=== PATIENT | female | born 1950 | race Caucasian/White ===

== ENCOUNTER 2019-02-04 08:07 | Inpatient (IN) | payer MEDICARE, BC ==
[2019-02-04] MEDS ORDERED: oxyCODONE 5 MG Tab ONE (12:02)
[2019-02-04] MEDS: oxyCODONE 5 MG Tab PO PRN ×2 (12:05→20:05)
[2019-02-04] MEDS ORDERED: Polyethylene Glycol 3350 Powder 17 GM Packet PO PRN (13:19)
[2019-02-04] MEDS ORDERED: Non-Formulary Medication 1 Each (Cholecalciferol (Vitamin D3) [Vitamin D3] 10,000 UNIT) PO SCH (13:30)
[2019-02-04] MEDS ORDERED: Tuberculin, PPD 5 Units/0.1 ML 1 ML MDV IDERM ONE (14:05)
--- NOTE | 2019-02-04 17:18 | PCM.HP ---
H&P History of Present Illness - General Date of Service: 02/04/19 Admit Problem/Dx: Admission Diagnosis/Problem Admission Diagnosis/Problem Postoperative care Source of Information: Patient History Limitations: Reports: No Limitations - History of Present Illness Initial Comments - Free Text/Narative: This is a 68yo F here for subacute rehabilitation post right hip arthroplasty. Patient still requires help for transfers and movement. Patient denies any current complications or concerns. Location: Reports: Pelvis Quality: Reports: Ache Severity: Moderate Improves with: Reports: None Worsens with: Reports: Movement Associated Symptoms: Reports: No Other Symptoms Right Hip Pain Score (Numeric/FACES): 5 - Related Data Allergies/Adverse Reactions: Allergies Allergy/AdvReac Type Severity Reaction Status Date / Time hydrochlorothiazide Allergy Unknown Rash Verified 02/04/19 11:51 Iodinated Contrast- Oral and Allergy Unknown Rash Verified 02/04/19 11:51 IV Dye Sulfa (Sulfonamide Allergy Unknown Rash Verified 02/04/19 11:51 Antibiotics) Home Medications: Home Meds Acetaminophen [Tylenol Arthritis] 650 mg PO Q6HR PRN 02/04/19 [History] Ascorbic Acid [Vitamin C] 1,000 mg PO DAILY 02/04/19 [History] Aspirin [Aspirin EC] 325 mg PO DAILY 02/04/19 [History] Calcium Carbonate [Calcium] 500 mg PO DAILY 02/04/19 [History] Cholecalciferol (Vitamin D3) [Vitamin D3] 10,000 unit PO WEEKLY 02/04/19 [ History] Furosemide 20 mg PO DAILY 02/04/19 [History] Glucosamine Sulfate 2KCl [Glucosamine] 1,000 mg PO DAILY 02/04/19 [History] Losartan [Cozaar] 50 mg PO DAILY 02/04/19 [History] Multivitamin [Multiple Vitamins] 1 each PO DAILY 02/04/19 [History] Naproxen 250 mg PO BID 02/04/19 [History] Pantoprazole Sodium [Protonix] 40 mg PO ACBREAKFAST 02/04/19 [History] Polyethylene Glycol 3350 [MiraLAX] 17 gm PO DAILY PRN 02/04/19 [History] Red Yeast Rice 600 mg PO DAILY 02/04/19 [History] Sennosides/Docusate Sodium [Senna-Docusate Sodium Tablet] 1 - 2 tab PO BID PRN 02/04/19 [History] oxyCODONE 5 - 10 mg PO Q4HR PRN 02/04/19 [History] Past Medical History HEENT History: Reports: None Other HEENT History: readers Cardiovascular History: Reports: Heart Failure Other Cardiovascular History: Pt has had radiation from breast cancer and EF is only 30 Respiratory History: Reports: SOB Other Respiratory History: cough, shortness of breath Gastrointestinal History: Reports: Other (See Below) Other Gastrointestinal History: hiccups Other Genitourinary History: Pt had ureter nicked during surgery and was taken to the of for repair. [employer] History: Reports: Dysfunctional Uterine Bleeding, Musculoskeletal History: Reports: Arthritis, Back Pain, Chronic, Osteoarthritis Other Musculoskeletal History: knee and hip pain, muscles weaker Neurological History: Reports: Other (See Below) Other Neuro History: MIXON from steroid injections Other Psychiatric History: claustraphobic Oncologic (Cancer) History: Reports: Breast Other Dermatologic History: bumps on skin - Past Surgical History Cardiovascular Surgical History: Reports: Other (See Below) Other Cardiovascular Surgeries/Procedures: bradycardia CHF GI Surgical History: Reports: Colonoscopy Female Surgical History: Reports: Hysterectomy Other Female Surgeries/Procedures: urethreal implant Musculoskeletal Surgical History: Reports: Hip Replacement Oncologic Surgical History: Reports: Lumpectomy Social & Family History - Family History Family Medical History: Noncontributory H&P Review of Systems - Review of Systems: Review Of Systems: ROS reveals no pertinent complaints other than HPI. Exam - Exam Exam: See Below - Vital Signs Vital Signs: Last Vital Signs Temp 36.8 C 02/04/19 13:16 Pulse 44 L 02/04/19 13:16 Resp 18 02/04/19 13:16 BP 126/51 L 02/04/19 13:16 Pulse Ox 97 02/04/19 13:16 Weight: 107.864 kg - Exam General: Alert, Oriented HEENT: PERRLA, Conjunctiva Clear, EACs Clear Neck: Supple, Trachea Midline Lungs: Clear to Auscultation, Normal Respiratory Effort Cardiovascular: Regular Rate, Regular Rhythm GI/Abdominal Exam: Normal Bowel Sounds, Soft, Non-Tender Back Exam: Normal Inspection Extremities: Normal Inspection Skin: Warm, Dry, Intact - Problem List (1) Post-operative state SNOMED Code(s): 80177694 ICD Code: Z98.890 - OTHER SPECIFIED POSTPROCEDURAL STATES Status: Acute Current Visit: Yes Problem List Initiated/Reviewed/Updated: Yes Orders Last 24hrs: Active Orders 24 hr Category Date Time Status Patient Status [ADT] Routine ADT 02/04/19 13:17 Active VTE/DVT Education [RC] DAILY Care 02/04/19 13:17 Active Vital Signs [RC] 08,20 Care 02/04/19 13:17 Active Hip Min 2V or 3V w Pelvis Rt [CR] Routine Exams 02/09/19 Ordered CULTURE MRSA SURVEY [RM] Routine Lab 02/04/19 14:08 Received Acetaminophen [Tylenol Arthritis Pain] Med 02/04/19 13:19 Active 650 mg PO Q6HR PRN Ascorbic Acid [Vitamin C] Med 02/05/19 20:00 Active 1,000 mg PO 2000 Aspirin [Ecotrin] Med 02/05/19 08:00 Active 325 mg PO DAILY Calcium Carbonate Med 02/05/19 20:00 Active 600 mg PO QPM Cholecalciferol (Vitamin D3) [Vitamin D3] Med 02/10/19 20:00 Active 10,000 unit PO TU@1999 Docusate Sodium/Sennosides [Senna Plus] Med 02/04/19 13:19 Active 1 - 2 tab PO BID PRN Furosemide [Lasix] Med 02/05/19 08:00 Active 20 mg PO DAILY Glucosamine Sulfate 2KCl [Glucosamine] Med 02/05/19 20:00 Active 1,000 mg PO BEDTIME Losartan [Cozaar] Med 02/05/19 08:00 Active 50 mg PO DAILY Multivitamins w-Iron/Ca/FA/Min [Thera M Plus] Med 02/05/19 20:00 Active 1 tab PO BEDTIME Naproxen [Naprosyn] Med 02/04/19 20:00 Active 250 mg PO BID Pantoprazole [ProTONIX] Med 02/05/19 07:00 Active 40 mg PO ACBREAKFAST Polyethylene Glycol 3350 [MiraLAX] Med 02/04/19 13:19 Active 17 gm PO DAILY PRN Red Yeast Rice [Red Yeast Rice] Med 02/05/19 20:00 Active 600 mg PO BEDTIME oxyCODONE Med 02/04/19 13:19 Active 5 - 10 mg PO Q4HR PRN Resuscitation Status Routine Resus Stat 02/04/19 13:17 Ordered Medication Orders Acetaminophen (Tylenol Arthritis Pain) 650 mg PO Q6HR PRN PRN Reason: Pain Ascorbic Acid (Vitamin C) 1,000 mg PO 1999 [facility] Stop: 02/16/19 23:59 Aspirin (Ecotrin) 325 mg PO DAILY EDMUNDO Calcium Carbonate/Glycine (Calcium Carbonate) 600 mg PO QPM EDMUNDO Cholecalciferol (Vitamin D3) 10,000 unit PO @1999 [facility] Furosemide (Lasix) 20 mg PO DAILY ED[facility] Losartan Potassium (Cozaar) 50 mg PO DAILY [facility] Multivitamins/Minerals (Thera M Plus) 1 tab PO BEDTIME [facility] Naproxen (Naprosyn) 250 mg PO BID [facility] Non-Formulary Medication 1 Each ( Glucosamine Sulfate 2kcl [Glucosamine] 500 Mg ) 1,000 mg PO BEDTIME EDMUNDO Non-Formulary Medication (Red Yeast Rice [Red Yeast Rice]) 600 mg PO BEDTIME EDMUN[facility] Oxycodone HCl (Oxycodone) 5 - 10 mg PO Q4HR PRN PRN Reason: Pain Last Admin: 02/04/19 12:05 Dose: 10 mg Pantoprazole Sodium (Protonix) 40 mg PO ACBREAKFAST [facility] Stop: 02/18/19 23:59 Polyethylene Glycol (Miralax) 17 gm PO DAILY PRN PRN Reason: Constipation Senna/Docusate Sodium (Senna Plus) 1 - 2 tab PO BID PRN PRN Reason: Constipation Assessment/Plan Comment:: Patient will continue with PT/OT and wound care. Continue discharge instructions from [place] and continue management. Meds reconciled.
[2019-02-04] MEDS: Acetaminophen 650 MG Tab.ER PO PRN (18:36)
[2019-02-04] MEDS ORDERED: Calcium Carbonate 600 MG Tab PO SCH (20:00)
[2019-02-04] MEDS: Naproxen 250 MG Tab PO SCH (20:05)
[2019-02-05] MEDS: Acetaminophen 650 MG Tab.ER PO PRN ×2 (01:55→17:37)
[2019-02-05] MEDS: Pantoprazole 40 MG Tab.CR PO SCH (06:23)
[2019-02-05] MEDS: Losartan 50 MG Tab PO SCH (07:57)
[2019-02-05] MEDS: Furosemide 20 MG Tab PO SCH (07:58)
[2019-02-05] MEDS: Naproxen 250 MG Tab PO SCH ×2 (07:58→20:51)
[2019-02-05] MEDS: Aspirin 325 MG Tab.EC PO SCH (07:58)
[2019-02-05] MEDS: oxyCODONE 5 MG Tab PO PRN ×2 (07:59→12:28)
[2019-02-05] MEDS ORDERED: Non-Formulary Medication 1 Each (Calcium Carbonate [Calcium] 500 MG) PO SCH (08:00)
[2019-02-05] MEDS ORDERED: Non-Formulary Medication 1 Each (Ascorbic Acid [Vitamin C] 1,000 MG) PO SCH (08:00)
[2019-02-05] MEDS ORDERED: MULTIVITAMIN PO SCH (08:00)
[2019-02-05] MEDS ORDERED: Calcium Carbonate 500 MG Tab.Chew PO SCH (20:00)
[2019-02-05] MEDS: Calcium Carbonate 600 MG Tab PO SCH (20:43)
[2019-02-05] MEDS: Ascorbic Acid 500 MG Tab PO SCH (20:43)
[2019-02-05] MEDS: GLUCOSAMINE SULFATE 500 MG PO SCH (20:44)
[2019-02-05] MEDS: Multivitamins with Iron/Calcium/Folic Acid/Minerals Tab PO SCH (20:45)
[2019-02-05] MEDS: RED YEAST RICE 600 MG PO SCH (20:52)
[2019-02-06] MEDS: Pantoprazole 40 MG Tab.CR PO SCH (06:50)
[2019-02-06] MEDS: Furosemide 20 MG Tab PO SCH (07:23)
[2019-02-06] MEDS: Naproxen 250 MG Tab PO SCH ×2 (07:23→19:33)
[2019-02-06] MEDS: Losartan 50 MG Tab PO SCH (07:23)
[2019-02-06] MEDS: Aspirin 325 MG Tab.EC PO SCH (07:23)
[2019-02-06] MEDS: oxyCODONE 5 MG Tab PO PRN (07:31)
[2019-02-06] MEDS: Acetaminophen 650 MG Tab.ER PO PRN (13:49)
[2019-02-06] MEDS: Calcium Carbonate 600 MG Tab PO SCH (19:33)
[2019-02-06] MEDS: Ascorbic Acid 500 MG Tab PO SCH (19:33)
[2019-02-06] MEDS: Multivitamins with Iron/Calcium/Folic Acid/Minerals Tab PO SCH (19:33)
[2019-02-06] MEDS: RED YEAST RICE 600 MG PO SCH (19:34)
[2019-02-06] MEDS: GLUCOSAMINE SULFATE 500 MG PO SCH (19:34)
[2019-02-07] MEDS: oxyCODONE 5 MG Tab PO PRN (02:39)
[2019-02-07] MEDS: Acetaminophen 650 MG Tab.ER PO PRN ×2 (02:41→19:38)
[2019-02-07] MEDS: Pantoprazole 40 MG Tab.CR PO SCH (06:13)
[2019-02-07] MEDS: Losartan 50 MG Tab PO SCH (07:24)
[2019-02-07] MEDS: Aspirin 325 MG Tab.EC PO SCH (07:24)
[2019-02-07] MEDS: Furosemide 20 MG Tab PO SCH (07:24)
[2019-02-07] MEDS: Naproxen 250 MG Tab PO SCH ×2 (07:24→19:37)
[2019-02-07] MEDS: Calcium Carbonate 600 MG Tab PO SCH (19:38)
[2019-02-07] MEDS: Ascorbic Acid 500 MG Tab PO SCH (19:38)
[2019-02-07] MEDS: Multivitamins with Iron/Calcium/Folic Acid/Minerals Tab PO SCH (19:38)
[2019-02-07] MEDS: GLUCOSAMINE SULFATE 500 MG PO SCH (19:39)
[2019-02-07] MEDS: RED YEAST RICE 600 MG PO SCH (19:40)
[2019-02-08] MEDS: Acetaminophen 650 MG Tab.ER PO PRN ×3 (06:10→22:12)
[2019-02-08] MEDS: Pantoprazole 40 MG Tab.CR PO SCH (06:10)
[2019-02-08] MEDS: Losartan 50 MG Tab PO SCH (08:11)
[2019-02-08] MEDS: Naproxen 250 MG Tab PO SCH ×2 (08:13→19:58)
[2019-02-08] MEDS: Furosemide 20 MG Tab PO SCH (08:13)
[2019-02-08] MEDS: Aspirin 325 MG Tab.EC PO SCH (08:13)
[2019-02-08] MEDS: GLUCOSAMINE SULFATE 500 MG PO SCH (19:57)
[2019-02-08] MEDS: Ascorbic Acid 500 MG Tab PO SCH (19:58)
[2019-02-08] MEDS: RED YEAST RICE 600 MG PO SCH (19:58)
[2019-02-08] MEDS: Calcium Carbonate 600 MG Tab PO SCH (19:58)
[2019-02-08] MEDS: Multivitamins with Iron/Calcium/Folic Acid/Minerals Tab PO SCH (19:58)
[2019-02-09] MEDS: Acetaminophen 650 MG Tab.ER PO PRN (03:05)
[2019-02-09] MEDS: Pantoprazole 40 MG Tab.CR PO SCH (06:32)
[2019-02-09] MEDS: Losartan 50 MG Tab PO SCH (08:07)
[2019-02-09] MEDS: oxyCODONE 5 MG Tab PO PRN (08:07)
[2019-02-09] MEDS: Furosemide 20 MG Tab PO SCH (08:07)
[2019-02-09] MEDS: Aspirin 325 MG Tab.EC PO SCH (08:07)
[2019-02-09] MEDS: Naproxen 250 MG Tab PO SCH ×2 (08:08→20:16)
--- NOTE | 2019-02-09 10:35 | PCM.PN ---
- General Info Date of Service: 02/09/19 Functional Status: Reports: Pain Controlled, Tolerating Diet, Ambulating, Urinating - Review of Systems General: Reports: No Symptoms HEENT: Reports: No Symptoms Pulmonary: Reports: No Symptoms Cardiovascular: Reports: No Symptoms Gastrointestinal: Reports: No Symptoms Genitourinary: Reports: No Symptoms Musculoskeletal: Reports: Joint Swelling, Other (difficulty with walking) Skin: Reports: No Symptoms Neurological: Reports: No Symptoms Psychiatric: Reports: No Symptoms - Patient Data Vitals - Most Recent: Last Vital Signs Temp 36.8 C 02/09/19 10:00 Pulse 48 L 02/09/19 10:00 Resp 16 02/09/19 10:00 BP 147/52 H 02/09/19 10:00 Pulse Ox 98 02/09/19 10:00 Weight - Most Recent: 104.871 kg Med Orders - Current: Current Medications Acetaminophen (Tylenol Arthritis Pain) 650 mg PO Q6HR PRN PRN Reason: Pain Last Admin: 02/09/19 03:05 Dose: 650 mg Ascorbic Acid (Vitamin C) 1,000 mg PO 1999 [facility] Stop: 02/16/19 23:59 Last Admin: 02/08/19 19:58 Dose: 1,000 mg Aspirin (Ecotrin) 325 mg PO DAILY [facility] Last Admin: 02/09/19 08:07 Dose: 325 mg Calcium Carbonate/Glycine (Calcium Carbonate) 600 mg PO QPM [facility] Last Admin: 02/08/19 19:58 Dose: 600 mg Cholecalciferol (Vitamin D3) 10,000 unit PO @1999 [facility] Furosemide (Lasix) 20 mg PO DAILY [facility] Last Admin: 02/09/19 08:07 Dose: 20 mg Losartan Potassium (Cozaar) 50 mg PO DAILY [facility] Last Admin: 02/09/19 08:07 Dose: 50 mg Multivitamins/Minerals (Thera M Plus) 1 tab PO BEDTIME [facility] Last Admin: 02/08/19 19:58 Dose: 1 tab Naproxen (Naprosyn) 250 mg PO BID [facility] Last Admin: 02/09/19 08:08 Dose: 250 mg Non-Formulary Medication 1 Each ( Glucosamine Sulfate 2kcl [Glucosamine] 500 Mg ) 1,000 mg PO BEDTIME [facility] Last Admin: 02/08/19 19:57 Dose: 1,000 mg Non-Formulary Medication (Red Yeast Rice [Red Yeast Rice]) 600 mg PO BEDTIME EDMUNDO Last Admin: 02/08/19 19:58 Dose: 600 mg Oxycodone HCl (Oxycodone) 5 - 10 mg PO Q4HR PRN PRN Reason: Pain Last Admin: 02/09/19 08:07 Dose: 5 mg Pantoprazole Sodium (Protonix) 40 mg PO ACBREAKFAST [facility] Stop: 02/18/19 23:59 Last Admin: 02/09/19 06:32 Dose: 40 mg Polyethylene Glycol (Miralax) 17 gm PO DAILY PRN PRN Reason: Constipation Senna/Docusate Sodium (Senna Plus) 1 - 2 tab PO BID PRN PRN Reason: Constipation Discontinued Medications Calcium Carbonate/Glycine (Tums) 200 mg PO BEDTIME EDMUNDO Calcium Carbonate/Glycine (Calcium Carbonate) 600 mg PO QPM EDM[facility] Cholecalciferol (Vitamin D3) 10,000 unit PO Tu [facility] Oxycodone HCl (Oxycodone) Confirm Administered Dose 10 mg .ROUTE .STK-MED ONE Stop: 02/04/19 12:03 Last Admin: 02/04/19 14:29 Dose: Not Given Tuberculin PPD (Aplisol) 5 unit IDERM ONETIME ONE Stop: 02/04/19 14:06 Last Admin: 02/04/19 15:09 Dose: 5 unit - Exam General: Alert, Oriented, Cooperative HEENT: Pupils Equal, Pupils Reactive, EOMI Neck: Supple Lungs: Clear to Auscultation, Normal Respiratory Effort Cardiovascular: Regular Rate, Regular Rhythm GI/Abdominal Exam: Normal Bowel Sounds Back Exam: Normal Inspection Extremities: Limited Range of Motion - Problem List & Annotations (1) Post-operative state SNOMED Code(s): 29769266 Code(s): Z98.890 - OTHER SPECIFIED POSTPROCEDURAL STATES Status: Acute Current Visit: Yes - Problem List Review Problem List Initiated/Reviewed/Updated: Yes - My Orders Last 24 Hours: My Active Orders 02/09/19 Hip Min 2V or 3V w Pelvis Rt [CR] Routine 02/10/19 20:00 Cholecalciferol (Vitamin D3) [Vitamin D3] 10,000 unit PO TU@1999 - Plan Plan:: Patient will continue with PT/OT and wound care. Continue discharge instructions from [place] and continue management. Meds reconciled. 02/09/19 Patient will continue with current PT/OT and f/u with Dr. Nelson today for further planning and management.
--- NOTE | 2019-02-09 12:50 | CR ---
DATE OF SERVICE: 02/09/19 CLINICAL DATA: S/P R) AGUSTIN PELVIS AND RIGHT HIP: No priors. The patient is status post right total hip arthroplasty. The prosthesis appears intact. There are moderately severe osteoarthritic changes of the left hip joint. No acute abnormalities. [id number] [facility]
[2019-02-09] MEDS: RED YEAST RICE 600 MG PO SCH (20:15)
[2019-02-09] MEDS: Ascorbic Acid 500 MG Tab PO SCH (20:15)
[2019-02-09] MEDS: Calcium Carbonate 600 MG Tab PO SCH (20:16)
[2019-02-09] MEDS: Multivitamins with Iron/Calcium/Folic Acid/Minerals Tab PO SCH (20:21)
[2019-02-09] MEDS: GLUCOSAMINE SULFATE 500 MG PO SCH (20:23)
[2019-02-10] MEDS: Pantoprazole 40 MG Tab.CR PO SCH (06:17)
[2019-02-10] MEDS: Losartan 50 MG Tab PO SCH (07:43)
[2019-02-10] MEDS: Naproxen 250 MG Tab PO SCH ×2 (07:43→20:42)
[2019-02-10] MEDS: Aspirin 325 MG Tab.EC PO SCH (07:43)
[2019-02-10] MEDS: Furosemide 20 MG Tab PO SCH (07:43)
[2019-02-10] MEDS ORDERED: Cholecalciferol (Vitamin D3) 2,000 Unit Cap PO SCH ×2 (08:00→20:00)
[2019-02-10] MEDS: Multivitamins with Iron/Calcium/Folic Acid/Minerals Tab PO SCH (20:30)
[2019-02-10] MEDS: GLUCOSAMINE SULFATE 500 MG PO SCH (20:42)
[2019-02-10] MEDS: RED YEAST RICE 600 MG PO SCH (20:42)
[2019-02-10] MEDS: Calcium Carbonate 600 MG Tab PO SCH (20:42)
[2019-02-10] MEDS: Ascorbic Acid 500 MG Tab PO SCH (20:43)
[2019-02-11] MEDS: Pantoprazole 40 MG Tab.CR PO SCH (06:07)
[2019-02-11] MEDS: Naproxen 250 MG Tab PO SCH ×2 (07:31→19:58)
[2019-02-11] MEDS: Furosemide 20 MG Tab PO SCH (07:31)
[2019-02-11] MEDS: Losartan 50 MG Tab PO SCH (07:31)
[2019-02-11] MEDS: Aspirin 325 MG Tab.EC PO SCH (07:31)
[2019-02-11] MEDS: RED YEAST RICE 600 MG PO SCH (19:57)
[2019-02-11] MEDS: Multivitamins with Iron/Calcium/Folic Acid/Minerals Tab PO SCH (19:58)
[2019-02-11] MEDS: Ascorbic Acid 500 MG Tab PO SCH (19:58)
[2019-02-11] MEDS: Calcium Carbonate 600 MG Tab PO SCH (19:58)
[2019-02-11] MEDS: GLUCOSAMINE SULFATE 500 MG PO SCH (19:58)
[2019-02-12] MEDS: Pantoprazole 40 MG Tab.CR PO SCH (06:13)
[2019-02-12 08:09] VITALS: BP 143/81; PULSE 37
[2019-02-12] MEDS: Losartan 50 MG Tab PO SCH (08:10)
[2019-02-12] MEDS: Aspirin 325 MG Tab.EC PO SCH (08:10)
[2019-02-12] MEDS: Furosemide 20 MG Tab PO SCH (08:11)
[2019-02-12] MEDS: Naproxen 250 MG Tab PO SCH (08:12)
--- NOTE | 2019-03-10 13:17 | PCM.DCSUM1 ---
Discharge Summary - Hospital Course Diagnosis: Stroke: No - Discharge Data Discharge Date: 02/12/19 Discharge Disposition: Home, Self-Care 01 Condition: Good - Discharge Diagnosis/Problem(s) (1) Post-operative state SNOMED Code(s): 86502830 ICD Code: Z98.890 - OTHER SPECIFIED POSTPROCEDURAL STATES Status: Acute - Patient Summary/Data Consults: Consultations 02/04/19 17:55 OT Evaluation and Treatment [CONS] Routine Please Evaluate and Treat. OT Reason for Consult: Strengthening This query below is only for informational purposes and is not editable. Admission Diagnosis/Problem: Postoperative care PT Evaluation and Treatment [CONS] Routine Please Evaluate and Treat. PT Reason for Consult: Strengthening This query below is only for informational purposes and is not editable. Admission Diagnosis/Problem: Postoperative care - Patient Instructions Diet: Heart Healthy Diet Activity: As Tolerated Showering/Bathing: May Shower Wound/Incision Care: Keep Operative Site/Wound Site Clean and Dry Notify Provider of: Swelling and Redness - Discharge Plan Home Medications: Home Meds Acetaminophen [Tylenol Arthritis] 650 mg PO Q6HR PRN 02/04/19 [History] Ascorbic Acid [Vitamin C] 1,000 mg PO DAILY 02/04/19 [History] Aspirin [Aspirin EC] 325 mg PO DAILY 02/04/19 [History] Calcium Carbonate [Calcium] 500 mg PO DAILY 02/04/19 [History] Cholecalciferol (Vitamin D3) [Vitamin D3] 10,000 unit PO WEEKLY 02/04/19 [ History] Furosemide 20 mg PO DAILY 02/04/19 [History] Glucosamine Sulfate 2KCl [Glucosamine] 1,000 mg PO DAILY 02/04/19 [History] Losartan [Cozaar] 50 mg PO DAILY 02/04/19 [History] Multivitamin [Multiple Vitamins] 1 each PO DAILY 02/04/19 [History] Naproxen 250 mg PO BID 02/04/19 [History] Pantoprazole Sodium [Protonix] 40 mg PO ACBREAKFAST 02/04/19 [History] Polyethylene Glycol 3350 [MiraLAX] 17 gm PO DAILY PRN 02/04/19 [History] Red Yeast Rice 600 mg PO DAILY 02/04/19 [History] Sennosides/Docusate Sodium [Senna-Docusate Sodium Tablet] 1 - 2 tab PO BID PRN 02/04/19 [History] oxyCODONE 5 - 10 mg PO Q4HR PRN 02/04/19 [History] Patient Handouts: Fall Prevention in the Home, Adult, [id number], Total Hip Replacement, Total Hip Replacement, Care After, [id number] - Discharge Summary/Plan Comment DC Time >30 min.: No Discharge Summary/Plan Comment: Patient to continued PT/OT and f/u with Orthopedics as scheduled. Routine f/u as needed. - General Info Date of Service: 02/12/19 Functional Status: Reports: Pain Controlled, Ambulating - Review of Systems General: Reports: Weakness HEENT: Reports: No Symptoms Pulmonary: Reports: No Symptoms Cardiovascular: Reports: No Symptoms Gastrointestinal: Reports: No Symptoms Genitourinary: Reports: No Symptoms Musculoskeletal: Reports: Leg Pain Skin: Reports: No Symptoms Neurological: Reports: No Symptoms Psychiatric: Reports: No Symptoms - Patient Data Vitals - Most Recent: Last Vital Signs Temp 36.6 C 02/12/19 08:00 Pulse 37 L 02/12/19 08:00 Resp 16 02/12/19 08:00 BP 143/81 H 02/12/19 08:10 Pulse Ox 100 02/12/19 08:00 Weight - Most Recent: 104.383 kg Med Orders - Current: Current Medications Discontinued Medications Acetaminophen (Tylenol Arthritis Pain) 650 mg PO Q6HR PRN PRN Reason: Pain Last Admin: 02/09/19 03:05 Dose: 650 mg Ascorbic Acid (Vitamin C) 1,000 mg PO 1999 [facility] Stop: 02/16/19 23:59 Last Admin: 02/11/19 19:58 Dose: 1,000 mg Aspirin (Ecotrin) 325 mg PO DAILY [facility] Last Admin: 02/12/19 08:10 Dose: 325 mg Calcium Carbonate/Glycine (Tums) 200 mg PO BEDTIME [facility] Calcium Carbonate/Glycine (Calcium Carbonate) 600 mg PO QPM [facility] Calcium Carbonate/Glycine (Calcium Carbonate) 600 mg PO QPM [facility] Last Admin: 02/11/19 19:58 Dose: 600 mg Cholecalciferol (Vitamin D3) 10,000 unit PO Tu EDMUNDO Cholecalciferol (Vitamin D3) 10,000 unit PO TU@1999 [facility] Last Admin: 02/10/19 20:43 Dose: 10,000 unit Furosemide (Lasix) 20 mg PO DAILY [facility] Last Admin: 02/12/19 08:11 Dose: 20 mg Losartan Potassium (Cozaar) 50 mg PO DAILY [facility] Last Admin: 02/12/19 08:10 Dose: 50 mg Multivitamins/Minerals (Thera M Plus) 1 tab PO BEDTIME [facility] Last Admin: 02/11/19 19:58 Dose: 1 tab Naproxen (Naprosyn) 250 mg PO BID [facility] Last Admin: 02/12/19 08:12 Dose: Not Given Non-Formulary Medication 1 Each ( Glucosamine Sulfate 2kcl [Glucosamine] 500 Mg ) 1,000 mg PO BEDTIME [facility] Last Admin: 02/11/19 19:58 Dose: 1,000 mg Non-Formulary Medication (Red Yeast Rice [Red Yeast Rice]) 600 mg PO BEDTIME [facility] Last Admin: 02/11/19 19:57 Dose: 600 mg Oxycodone HCl (Oxycodone) Confirm Administered Dose 10 mg .ROUTE .STK-MED ONE Stop: 02/04/19 12:03 Last Admin: 02/04/19 14:29 Dose: Not Given Oxycodone HCl (Oxycodone) 5 - 10 mg PO Q4HR PRN PRN Reason: Pain Last Admin: 02/09/19 08:07 Dose: 5 mg Pantoprazole Sodium (Protonix) 40 mg PO ACBREAKFAST [facility] Stop: 02/18/19 23:59 Last Admin: 02/12/19 06:13 Dose: 40 mg Polyethylene Glycol (Miralax) 17 gm PO DAILY PRN PRN Reason: Constipation Senna/Docusate Sodium (Senna Plus) 1 - 2 tab PO BID PRN PRN Reason: Constipation Tuberculin PPD (Aplisol) 5 unit IDERM ONETIME ONE Stop: 02/04/19 14:06 Last Admin: 02/04/19 15:09 Dose: 5 unit - Exam General: Reports: Alert, Oriented, Cooperative HEENT: Reports: Pupils Equal, Pupils Reactive Neck: Reports: Supple Lungs: Reports: Clear to Auscultation, Normal Respiratory Effort Cardiovascular: Reports: Regular Rate, Regular Rhythm GI/Abdominal Exam: Normal Bowel Sounds Back Exam: Reports: Normal Inspection Extremities: Normal Inspection
== END 2019-02-12 09:30 | disposition home or self-care (01) | DRG 561 ==
LOC: UNDOADMIN 11:45 → LB.MS 11:45
PROVIDERS: ADMIT Family Medicine; ATTEND Family Medicine
DX: Z47.1 Aftercare following joint replacement surgery (principal); Z96.641 Presence of right artificial hip joint; I50.9 Heart failure, unspecified; M19.90 Unspecified osteoarthritis, unspecified site; G89.29 Other chronic pain; M54.9 Dorsalgia, unspecified; Z92.3 Personal history of irradiation; Z88.2 Allergy status to sulfonamides; Z88.8 Allergy status to other drugs, medicaments and biological substances; Z79.82 Long term (current) use of aspirin; Z79.899 Other long term (current) drug therapy; Z85.3 Personal history of malignant neoplasm of breast; Z91.041 Radiographic dye allergy status; Z90.710 Acquired absence of both cervix and uterus
CPT/HCPCS: 73502-RT; 86580; 97110-GP; 97116-GP; 97161-GP; 97165-GO; 97530-GO; 97530-GP; 97535-GO; A9270-GY

== ENCOUNTER 2019-06-29 10:50 | Inpatient (IN) | payer MEDICARE, BC ==
[2019-06-29] MEDS ORDERED: Polyethylene Glycol 3350 Powder 17 GM Packet PO PRN (15:46)
[2019-06-29] MEDS ORDERED: Non-Formulary Medication 1 Each (Cholecalciferol (Vitamin D3) [Vitamin D3] 10,000 UNIT) PO SCH (16:00)
[2019-06-29] MEDS: oxyCODONE 5 MG Tab PO PRN (19:03)
[2019-06-30] MEDS: oxyCODONE 5 MG Tab PO PRN ×6 (01:26→22:10)
[2019-06-30] MEDS: Pantoprazole 40 MG Tab.CR PO SCH (07:03)
[2019-06-30] MEDS: Furosemide 20 MG Tab PO SCH (07:05)
[2019-06-30] MEDS: Aspirin 325 MG Tab.EC PO SCH (07:05)
[2019-06-30] MEDS: Losartan 25 MG Tab PO SCH (07:07)
[2019-06-30] MEDS: Calcium Carbonate 500 MG Tab.Chew PO SCH (07:11)
[2019-06-30] MEDS: Multivitamins with Iron/Calcium/Folic Acid/Minerals Tab PO SCH (07:16)
[2019-06-30] MEDS: Ascorbic Acid 500 MG Tab PO SCH (07:17)
[2019-06-30] MEDS ORDERED: MULTIVITAMIN PO SCH (08:00)
[2019-06-30] MEDS ORDERED: Non-Formulary Medication 1 Each (Calcium Carbonate [Calcium] 500 MG) PO SCH (08:00)
[2019-06-30] MEDS ORDERED: Losartan 50 MG Tab PO SCH (08:00)
[2019-06-30] MEDS ORDERED: Non-Formulary Medication 1 Each (Ascorbic Acid [Vitamin C] 1,000 MG) PO SCH (08:00)
[2019-06-30] MEDS: Acetaminophen 650 MG Tab.ER PO PRN (09:11)
[2019-07-01] MEDS: Aspirin 325 MG Tab.EC PO SCH (07:34)
[2019-07-01] MEDS: Furosemide 20 MG Tab PO SCH (07:34)
[2019-07-01] MEDS: Ascorbic Acid 500 MG Tab PO SCH ×2 (07:35→09:28)
[2019-07-01] MEDS: Calcium Carbonate 500 MG Tab.Chew PO SCH ×2 (07:35→09:28)
[2019-07-01] MEDS: Losartan 25 MG Tab PO SCH (07:35)
[2019-07-01] MEDS: Multivitamins with Iron/Calcium/Folic Acid/Minerals Tab PO SCH ×2 (07:35→09:28)
[2019-07-01] MEDS: Pantoprazole 40 MG Tab.CR PO SCH (07:35)
[2019-07-01] MEDS: Acetaminophen 650 MG Tab.ER PO PRN ×3 (07:39→20:08)
--- NOTE | 2019-07-01 08:49 | PCM.HP.2 ---
H&P History of Present Illness - General Date of Service: 06/29/19 Admit Problem/Dx: Admission Diagnosis/Problem Admission Diagnosis/Problem Postoperative care Source of Information: Patient History Limitations: Reports: No Limitations - History of Present Illness Initial Comments - Free Text/Narative: This is a pleasant 69yo F who recently underwent hip arthroplasty. She states her pain is controlled and her surgery went well. She feels even better than the the other hip surgery. She denies any issues or concerns. Discussed BM and her last BM was days ago but has been passing gas. Location: Reports: Lower Extremity, Left Severity: Mild Worsens with: Reports: Movement Associated Symptoms: Reports: No Other Symptoms Left Hip Pain Score (Numeric/FACES): 5 - Related Data Allergies/Adverse Reactions: Allergies Allergy/AdvReac Type Severity Reaction Status Date / Time hydrochlorothiazide Allergy Unknown Rash Verified 02/04/19 11:51 Iodinated Contrast Media Allergy Unknown Rash Verified 02/04/19 11:51 Sulfa (Sulfonamide Allergy Unknown Rash Verified 02/04/19 11:51 Antibiotics) tramadol Allergy Rash Verified 06/29/19 12:00 Home Medications: Home Meds Acetaminophen [Tylenol Arthritis] 650 mg PO Q6HR PRN 02/04/19 [History] Ascorbic Acid [Vitamin C] 1,000 mg PO DAILY 02/04/19 [History] Aspirin [Aspirin EC] 325 mg PO DAILY 02/04/19 [History] Calcium Carbonate [Calcium] 500 mg PO DAILY 02/04/19 [History] Cholecalciferol (Vitamin D3) [Vitamin D3] 10,000 unit PO WEEKLY 02/04/19 [ History] Furosemide 20 mg PO DAILY 02/04/19 [History] Glucosamine Sulfate 2KCl [Glucosamine] 1,000 mg PO DAILY 02/04/19 [History] Losartan [Cozaar] 25 mg PO DAILY 02/04/19 [History] Multivitamin [Multiple Vitamins] 1 each PO DAILY 02/04/19 [History] Pantoprazole Sodium [Protonix] 40 mg PO ACBREAKFAST 02/04/19 [History] Polyethylene Glycol 3350 [MiraLAX] 3 tsp PO DAILY PRN 02/04/19 [History] Red Yeast Rice 600 mg PO DAILY 02/04/19 [History] Sennosides/Docusate Sodium [Senna-Docusate Sodium Tablet] 1 - 2 tab PO BID PRN 02/04/19 [History] oxyCODONE 5 - 10 mg PO Q4HR PRN 02/04/19 [History] Past Medical History HEENT History: Reports: None Other HEENT History: readers Cardiovascular History: Reports: Heart Failure Other Cardiovascular History: Pt has had radiation from breast cancer and EF is only 30 Respiratory History: Reports: SOB Other Respiratory History: cough, shortness of breath Gastrointestinal History: Reports: Other (See Below) Other Gastrointestinal History: hiccups Other Genitourinary History: Pt had ureter nicked during surgery and was taken to the [facility] for repair. [employer] CAST History: Reports: Dysfunctional Uterine Bleeding, Musculoskeletal History: Reports: Arthritis, Back Pain, Chronic, Osteoarthritis Other Musculoskeletal History: knee and hip pain, muscles weaker Neurological History: Reports: Other (See Below) Other Neuro History: MIXON from steroid injections Other Psychiatric History: claustraphobic Oncologic (Cancer) History: Reports: Breast Dermatologic History: Reports: Other (See Below) Other Dermatologic History: bumps on skin - Past Surgical History Cardiovascular Surgical History: Reports: Other (See Below) Other Cardiovascular Surgeries/Procedures: bradycardia CHF GI Surgical History: Reports: Colonoscopy Female Surgical History: Reports: Hysterectomy Other Female Surgeries/Procedures: urethreal implant Musculoskeletal Surgical History: Reports: Hip Replacement Oncologic Surgical History: Reports: Lumpectomy Social & Family History - Family History Family Medical History: Noncontributory - Tobacco Use Smoking Status *Q: Never Smoker Second Hand Smoke Exposure: Yes - Caffeine Use Caffeine Use: Reports: None - Recreational Drug Use Recreational Drug Use: No H&P Review of Systems - Review of Systems: Review Of Systems: Comprehensive ROS is negative, except as noted in HPI. Exam - Exam Exam: See Below - Vital Signs Vital Signs: Last Vital Signs Temp 36.8 C 06/30/19 19:48 Pulse 42 L 06/30/19 19:48 Resp 16 06/30/19 19:48 BP 132/81 07/01/19 07:35 Pulse Ox 100 06/30/19 19:48 Weight: 112.491 kg - Exam General: Alert, Oriented, Cooperative HEENT: PERRLA, Conjunctiva Clear, EACs Clear Neck: Supple, Trachea Midline Lungs: Clear to Auscultation, Normal Respiratory Effort Cardiovascular: Regular Rate, Regular Rhythm GI/Abdominal Exam: Abnormal Bowel Sounds (decreased) - Patient Data Jean-Claude Results Last 24 hrs: Microbiology 06/29/19 Unknown MRSA Surveillance Culture - Final Nares, Right NO MRSA ISOLATED - Problem List (1) History of left hip replacement SNOMED Code(s): 792621864 ICD Code: Z96.642 - PRESENCE OF LEFT ARTIFICIAL HIP JOINT Status: Acute Priority: High Current Visit: Yes (2) Post-operative state SNOMED Code(s): 08223369 ICD Code: Z98.890 - OTHER SPECIFIED POSTPROCEDURAL STATES Status: Acute Priority: High Current Visit: Yes Problem List Initiated/Reviewed/Updated: Yes Orders Last 24hrs: Active Orders 24 hr Category Date Time Status OT Evaluation and Treatment [CONS] Routine Cons 06/30/19 11:12 Active PT Evaluation and Treatment [CONS] Routine Cons 06/30/19 11:11 Active Ascorbic Acid [Vitamin C] Med 06/30/19 08:00 Active 1,000 mg PO DAILY Aspirin [Ecotrin] Med 06/30/19 08:00 Active 325 mg PO DAILY Calcium Carbonate [Tums] Med 06/30/19 08:00 Active 500 mg PO DAILY Furosemide [Lasix] Med 06/30/19 08:00 Active 20 mg PO DAILY Glucosamine Sulfate 2KCl [Glucosamine] Med 06/30/19 08:00 Pending 1,000 mg PO DAILY Losartan [Cozaar] Med 06/30/19 08:00 Active 25 mg PO DAILY Multivitamins w-Iron/Ca/FA/Min [Thera M Plus] Med 06/30/19 08:00 Active 1 tab PO DAILY Red Yeast Rice [Red Yeast Rice] Med 06/30/19 08:00 Pending 600 mg PO DAILY Medication Orders Acetaminophen (Tylenol Arthritis Pain) 650 mg PO Q6H PRN PRN Reason: Pain Last Admin: 07/01/19 07:39 Dose: 650 mg Admin: 06/30/19 09:11 Dose: 650 mg Ascorbic Acid (Vitamin C) 1,000 mg PO DAILY [facility] Last Admin: 06/30/19 07:17 Dose: Aspirin (Ecotrin) 325 mg PO DAILY [facility] Last Admin: 07/01/19 07:34 Dose: 325 mg Admin: 06/30/19 07:05 Dose: 325 mg Calcium Carbonate/Glycine (Tums) 500 mg PO DAILY [facility] Last Admin: 06/30/19 07:11 Dose: 500 mg Furosemide (Lasix) 20 mg PO DAILY [facility] Last Admin: 07/01/19 07:34 Dose: 20 mg Admin: 06/30/19 07:05 Dose: 20 mg Losartan Potassium (Cozaar) 25 mg PO DAILY [facility] Last Admin: 07/01/19 07:35 Dose: 25 mg Admin: 06/30/19 07:07 Dose: 25 mg Multivitamins/Minerals (Thera M Plus) 1 tab PO DAILY [facility] Last Admin: 06/30/19 07:16 Dose: Non-Formulary Medication (Cholecalciferol (Vitamin D3) [Vitamin D3]) 10,000 unit PO WEEKLY [facility] Non-Formulary Medication (Glucosamine Sulfate 2kcl [Glucosamine]) 1,000 mg PO DAILY [facility] Non-Formulary Medication (Red Yeast Rice [Red Yeast Rice]) 600 mg PO DAILY [facility] Oxycodone HCl (Oxycodone) 5 - 10 mg PO Q4HR PRN PRN Reason: Pain Last Admin: 06/30/19 22:10 Dose: 5 mg Admin: 06/30/19 19:29 Dose: 5 mg Admin: 06/30/19 13:35 Dose: 5 mg Admin: 06/30/19 09:06 Dose: 5 mg Admin: 06/30/19 07:10 Dose: 5 mg Admin: 06/30/19 01:26 Dose: 10 mg Admin: 06/29/19 19:03 Dose: 10 mg Pantoprazole Sodium (Protonix) 40 mg PO ACBREAKFAST [facility] Last Admin: 07/01/19 07:35 Dose: 40 mg Admin: 06/30/19 07:03 Dose: 40 mg Polyethylene Glycol (Miralax) 17 gm PO DAILY PRN PRN Reason: Constipation Senna/Docusate Sodium (Senna Plus) 1 - 2 tab PO BID PRN PRN Reason: Constipation Assessment/Plan Comment:: Patient will be admitted to swing bed for rehabilitation. PT/OT evaluation and management. Pain controlled. Monitor BM closely. - Mortality Measure Prognosis:: Good
[2019-07-01] MEDS: oxyCODONE 5 MG Tab PO PRN ×2 (08:58→20:08)
[2019-07-01] MEDS ORDERED: Calcium Carbonate 500 MG Tab.Chew PO PRN (11:59)
[2019-07-01] MEDS: [UNRECOGNIZED DRUG - OTHER] PO SCH ×2 (13:38→14:20)
[2019-07-01] MEDS: RED YEAST RICE 600 MG PO SCH ×3 (13:38→20:08)
[2019-07-01] MEDS: GLUCOSAMINE PO SCH ×2 (13:38→14:20)
[2019-07-01] MEDS ORDERED: GLUCOSAMINE 1500 MG PO SCH (20:00)
[2019-07-01] MEDS ORDERED: METHYLSULFONYLMETHANE 1500 MG PO SCH (20:00)
[2019-07-01] MEDS: CENTRUM SILVER MULTIVITAMIN PO SCH (20:08)
[2019-07-01] MEDS: Cholecalciferol (Vitamin D3) 25 MCG Tab PO SCH (20:08)
[2019-07-02] MEDS: oxyCODONE 5 MG Tab PO PRN ×4 (01:33→21:01)
[2019-07-02] MEDS: Pantoprazole 40 MG Tab.CR PO SCH (06:11)
[2019-07-02] MEDS: Aspirin 325 MG Tab.EC PO SCH (07:29)
[2019-07-02] MEDS: Losartan 25 MG Tab PO SCH (07:33)
[2019-07-02] MEDS: Acetaminophen 650 MG Tab.ER PO PRN (07:33)
[2019-07-02] MEDS: Furosemide 20 MG Tab PO SCH (07:34)
[2019-07-02] MEDS ORDERED: Ascorbic Acid 500 MG Tab PO SCH (08:00)
[2019-07-02] MEDS ORDERED: Multivitamins with Iron/Calcium/Folic Acid/Minerals Tab ONE (19:29)
[2019-07-02] MEDS: Cholecalciferol (Vitamin D3) 25 MCG Tab PO SCH (21:01)
[2019-07-02] MEDS: GLUCOSAMINE 1500 MG PO SCH (21:04)
[2019-07-02] MEDS: METHYLSULFONYLMETHANE 1500 MG PO SCH (21:04)
[2019-07-02] MEDS: Ascorbic Acid 500 MG Tab PO SCH (21:04)
[2019-07-02] MEDS: CENTRUM SILVER MULTIVITAMIN PO SCH (21:04)
[2019-07-02] MEDS: RED YEAST RICE 600 MG PO SCH (21:05)
[2019-07-03] MEDS: Ascorbic Acid 500 MG Tab PO SCH ×5 (02:19→20:07)
[2019-07-03] MEDS: Acetaminophen 650 MG Tab.ER PO PRN ×3 (02:21→20:24)
[2019-07-03] MEDS: Pantoprazole 40 MG Tab.CR PO SCH (07:40)
[2019-07-03] MEDS: Losartan 25 MG Tab PO SCH (07:40)
[2019-07-03] MEDS: Furosemide 20 MG Tab PO SCH (07:40)
[2019-07-03] MEDS: Aspirin 325 MG Tab.EC PO SCH (07:41)
[2019-07-03] MEDS: oxyCODONE 5 MG Tab PO PRN ×2 (07:46→12:39)
[2019-07-03] MEDS ORDERED: CHOLECALCIFEROL 25 MCG PO SCH (20:00)
[2019-07-03] MEDS: METHYLSULFONYLMETHANE 1500 MG PO SCH (20:07)
[2019-07-03] MEDS: CENTRUM SILVER MULTIVITAMIN PO SCH (20:07)
[2019-07-03] MEDS: GLUCOSAMINE 1500 MG PO SCH (20:07)
[2019-07-03] MEDS: RED YEAST RICE 600 MG PO SCH (20:09)
[2019-07-04] MEDS: Acetaminophen 650 MG Tab.ER PO PRN ×2 (04:51→19:24)
[2019-07-04] MEDS: Pantoprazole 40 MG Tab.CR PO SCH (06:30)
[2019-07-04] MEDS: Losartan 25 MG Tab PO SCH (08:10)
[2019-07-04] MEDS: Aspirin 325 MG Tab.EC PO SCH (08:10)
[2019-07-04] MEDS: Furosemide 20 MG Tab PO SCH (08:10)
[2019-07-04] MEDS: oxyCODONE 5 MG Tab PO PRN (11:04)
[2019-07-04] MEDS: CHOLECALCIFEROL 25 MCG PO SCH (19:24)
[2019-07-04] MEDS: RED YEAST RICE 600 MG PO SCH (19:25)
[2019-07-04] MEDS: METHYLSULFONYLMETHANE 1500 MG PO SCH (19:25)
[2019-07-04] MEDS: GLUCOSAMINE 1500 MG PO SCH (19:25)
[2019-07-04] MEDS: Ascorbic Acid 500 MG Tab PO SCH (19:25)
[2019-07-04] MEDS: CENTRUM SILVER MULTIVITAMIN PO SCH (19:26)
[2019-07-04] MEDS ORDERED: CHOLECALCIFEROL 25 MCG PO SCH (20:00)
[2019-07-05] MEDS: Acetaminophen 650 MG Tab.ER PO PRN ×3 (06:34→19:16)
[2019-07-05] MEDS: Pantoprazole 40 MG Tab.CR PO SCH (06:48)
[2019-07-05] MEDS: Losartan 25 MG Tab PO SCH (07:38)
[2019-07-05] MEDS: Aspirin 325 MG Tab.EC PO SCH (07:38)
[2019-07-05] MEDS: Furosemide 20 MG Tab PO SCH (07:39)
[2019-07-05] MEDS ORDERED: Multivitamins with Iron/Calcium/Folic Acid/Minerals Tab ONE (19:04)
[2019-07-05] MEDS: Ascorbic Acid 500 MG Tab PO SCH (19:15)
[2019-07-05] MEDS: CHOLECALCIFEROL 25 MCG PO SCH (19:16)
[2019-07-05] MEDS: CENTRUM SILVER MULTIVITAMIN PO SCH (19:16)
[2019-07-05] MEDS: GLUCOSAMINE 1500 MG PO SCH (19:20)
[2019-07-05] MEDS: METHYLSULFONYLMETHANE 1500 MG PO SCH (19:20)
[2019-07-05] MEDS: RED YEAST RICE 600 MG PO SCH (19:20)
[2019-07-06] MEDS: Acetaminophen 650 MG Tab.ER PO PRN (07:16)
[2019-07-06] MEDS: Pantoprazole 40 MG Tab.CR PO SCH (07:17)
[2019-07-06] MEDS: Furosemide 20 MG Tab PO SCH (07:17)
[2019-07-06] MEDS: Aspirin 325 MG Tab.EC PO SCH (07:17)
[2019-07-06] MEDS: Losartan 25 MG Tab PO SCH (07:22)
[2019-07-06 07:28] VITALS: BP 128/52
[2019-07-06 09:17] VITALS: PULSE 50
[2019-07-06] MEDS: oxyCODONE 5 MG Tab PO PRN (11:40)
--- NOTE | 2019-07-07 16:00 | PCM.DCSUM1 ---
Discharge Summary - Discharge Data Discharge Date: 07/06/19 Discharge Disposition: Home, Self-Care 01 Condition: Good - Referral to Home Health Primary Care Physician: PCP None - Discharge Diagnosis/Problem(s) (1) History of left hip replacement SNOMED Code(s): 074889776 ICD Code: Z96.642 - PRESENCE OF LEFT ARTIFICIAL HIP JOINT Status: Acute Priority: High (2) Post-operative state SNOMED Code(s): 67078391 ICD Code: Z98.890 - OTHER SPECIFIED POSTPROCEDURAL STATES Status: Acute Priority: High - Patient Summary/Data Consults: Consultations 06/30/19 11:11 PT Evaluation and Treatment [CONS] Routine Please Evaluate and Treat. PT Reason for Consult: Strengthening Special Instructions: Pt eval and treat s/p Left hip surgery This query below is only for informational purposes and is not editable. Admission Diagnosis/Problem: Postoperative care 06/30/19 11:12 OT Evaluation and Treatment [CONS] Routine Please Evaluate and Treat. OT Reason for Consult: ADL's Special Instructions: OT eval and treatment s/p Left hip surgery This query below is only for informational purposes and is not editable. Admission Diagnosis/Problem: Postoperative care - Patient Instructions Diet: Heart Healthy Diet, Usual Diet as Tolerated, Low Sodium Activity: Apply Ice, As Tolerated Driving: Do Not Drive Showering/Bathing: May Shower Wound/Incision Care: Keep Operative Site/Wound Site Clean and Dry, Do NOT Change Dressing Notify Provider of: Fever, Increased Pain, Swelling and Redness, Drainage - Discharge Plan Home Medications: Home Meds Acetaminophen [Tylenol Arthritis] 650 mg PO Q6HR PRN 02/04/19 [History] Ascorbic Acid [Vitamin C] 1,000 mg PO DAILY 02/04/19 [History] Aspirin [Aspirin EC] 325 mg PO DAILY 02/04/19 [History] Calcium Carbonate [Calcium] 500 mg PO DAILY 02/04/19 [History] Furosemide 20 mg PO DAILY 02/04/19 [History] Glucosamine Sulfate 2KCl [Glucosamine] 1,000 mg PO DAILY 02/04/19 [History] Losartan [Cozaar] 25 mg PO DAILY 02/04/19 [History] Pantoprazole Sodium [Protonix] 40 mg PO ACBREAKFAST 02/04/19 [History] Polyethylene Glycol 3350 [MiraLAX] 3 tsp PO DAILY PRN 02/04/19 [History] Red Yeast Rice 600 mg PO DAILY 02/04/19 [History] Sennosides/Docusate Sodium [Senna-Docusate Sodium Tablet] 1 - 2 tab PO BID PRN 02/04/19 [History] oxyCODONE 5 - 10 mg PO Q4HR PRN 02/04/19 [History] Multivit-Min/Iron/Folic/Lutein [Centrum Silver Women Tablet] 1 each PO BEDTIME 07/01/19 [History] Patient Handouts: Hip Arthroscopy, Care After - Discharge Summary/Plan Comment DC Time >30 min.: No Discharge Summary/Plan Comment: Counseled on routine PT/OT and f/u in clinic as directed. Patient to f/u with Orthopedics as routine. - General Info Date of Service: 07/06/19 Functional Status: Reports: Pain Controlled, Ambulating - Review of Systems General: Reports: Weakness HEENT: Reports: No Symptoms Pulmonary: Reports: No Symptoms Cardiovascular: Reports: No Symptoms Gastrointestinal: Reports: No Symptoms Genitourinary: Reports: No Symptoms Musculoskeletal: Reports: Leg Pain Skin: Reports: No Symptoms Neurological: Reports: No Symptoms - Patient Data Vitals - Most Recent: Last Vital Signs Temp 36.7 C 07/06/19 08:00 Pulse 50 L 07/06/19 08:00 Resp 18 07/06/19 08:00 BP 128/52 L 07/06/19 08:00 Pulse Ox 99 07/06/19 08:00 Weight - Most Recent: 108.681 kg Med Orders - Current: Current Medications Discontinued Medications Acetaminophen (Tylenol Arthritis Pain) 650 mg PO Q6H PRN PRN Reason: Pain Last Admin: 07/06/19 07:16 Dose: 650 mg Ascorbic Acid (Vitamin C) 1,000 mg PO DAILY [facility] Last Admin: 07/01/19 09:28 Dose: Not Given Ascorbic Acid (Vitamin C) 1,000 mg PO DAILY [facility] Ascorbic Acid (Vitamin C) 1,000 mg PO DAILY [facility] Last Admin: 07/03/19 07:41 Dose: Not Given Ascorbic Acid (Vitamin C) 1,000 mg PO BEDTIME [facility] Last Admin: 07/05/19 19:15 Dose: 1,000 mg Aspirin (Ecotrin) 325 mg PO DAILY [facility] Last Admin: 07/06/19 07:17 Dose: 325 mg Calcium Carbonate/Glycine (Tums) 500 mg PO DAILY [facility] Last Admin: 07/01/19 09:28 Dose: Not Given Calcium Carbonate/Glycine (Tums) 500 mg PO BID PRN PRN Reason: Indigestion Cholecalciferol (Vitamin D3) 25 mcg PO BEDTIME [facility] Last Admin: 07/02/19 21:01 Dose: 25 mcg Cholecalciferol (Vitamin D3) 25 mcg PO BEDTIME [facility] Last Admin: 07/05/19 19:16 Dose: 25 mcg Furosemide (Lasix) 20 mg PO DAILY [facility] Last Admin: 07/06/19 07:17 Dose: 20 mg Losartan Potassium (Cozaar) 25 mg PO DAILY [facility] Last Admin: 07/06/19 07:22 Dose: 25 mg Multivitamins/Minerals (Thera M Plus) 1 tab PO DAILY [facility] Last Admin: 07/01/19 09:28 Dose: Not Given Multivitamins/Minerals (Thera M Plus) Confirm Administered Dose 1 tab .ROUTE .STK-MED ONE Stop: 07/02/19 19:30 Last Admin: 07/02/19 21:00 Dose: 1 tab Multivitamins/Minerals (Thera M Plus) Confirm Administered Dose 1 tab .ROUTE .STK-MED ONE Stop: 07/05/19 19:05 Last Admin: 07/05/19 19:15 Dose: Not Given Glucosamine 1500mg With Msn 1500mg0wn Med 0 mg PO DAILY [facility] Last Admin: 07/01/19 14:20 Dose: Not Given Red Yeast Rice [Red Yeast Rice] 600 Mg Own Med 600 mg PO DAILY [facility] Last Admin: 07/01/19 14:20 Dose: Not Given Centrum Silver MultivitaminOwn Med 1 each PO BEDTIME [facility] Last Admin: 07/05/19 19:16 Dose: 1 each Glucosamine 1500mg With Msm 1500mg0wn Med 0 mg PO BEDTIME [facility] Last Admin: 07/01/19 20:08 Dose: 1 mg Red Yeast Rice [Red Yeast Rice] 600 Mg Own Med 600 mg PO BEDTIME [facility] Last Admin: 07/05/19 19:20 Dose: 600 mg Glucosamine 1500mg With Msm 1500mg0wn Med 1,500 mg PO BEDTIME [facility] Last Admin: 07/05/19 19:20 Dose: 1,500 mg Oxycodone HCl (Oxycodone) 5 - 10 mg PO Q4HR PRN PRN Reason: Pain Last Admin: 07/06/19 11:40 Dose: 5 mg Pantoprazole Sodium (Protonix) 40 mg PO ACBREAKFAST [facility] Last Admin: 07/06/19 07:17 Dose: 40 mg Cholecalciferol ( Vitamin D3) 25 Mcg Tab*Pt Own Med* 0 each PO BEDTIME [facility] Last Admin: 07/03/19 20:10 Dose: 1 each Polyethylene Glycol (Miralax) 17 gm PO DAILY PRN PRN Reason: Constipation Senna/Docusate Sodium (Senna Plus) 1 - 2 tab PO BID PRN PRN Reason: Constipation - Exam General: Reports: Alert, Oriented, Cooperative HEENT: Reports: Pupils Equal, Pupils Reactive, EOMI Neck: Reports: Supple Lungs: Reports: Clear to Auscultation, Normal Respiratory Effort Cardiovascular: Reports: Regular Rate, Regular Rhythm GI/Abdominal Exam: Normal Bowel Sounds Back Exam: Reports: Normal Inspection Extremities: Normal Inspection Skin: Reports: Warm, Dry, Intact
== END 2019-07-06 13:20 | disposition home or self-care (01) | DRG 561 ==
LOC: UNDOADMIN 15:24 → LB.MS 15:24
PROVIDERS: ADMIT Nurse Practitioner Family; ATTEND Family Medicine
DX: Z47.1 Aftercare following joint replacement surgery (principal); Z96.642 Presence of left artificial hip joint; I50.9 Heart failure, unspecified; G89.29 Other chronic pain; M54.9 Dorsalgia, unspecified; M19.90 Unspecified osteoarthritis, unspecified site; Z96.649 Presence of unspecified artificial hip joint; Z96.0 Presence of urogenital implants; Z79.82 Long term (current) use of aspirin; Z79.899 Other long term (current) drug therapy; Z88.8 Allergy status to other drugs, medicaments and biological substances; Z88.2 Allergy status to sulfonamides; Z91.041 Radiographic dye allergy status; Z88.5 Allergy status to narcotic agent; Z85.3 Personal history of malignant neoplasm of breast; Z90.710 Acquired absence of both cervix and uterus
CPT/HCPCS: 97110-GP; 97116-GP; 97161-GP; 97165-GO; 97530-GO; 97530-GP; 97535-GO; A9270-GY

== ENCOUNTER 2021-08-09 13:43 | Emergency (ER) | payer MEDICARE, BC ==
[2021-08-09 16:54] LABS: CORONAVIRUS COVID-19 NAA NEGATIVE (NEGATIVE)
--- NOTE | 2021-08-09 17:08 | EDM.PDOC ---
ED HPI GENERAL MEDICAL PROBLEM - General Stated Complaint: SHORTNESS OF BREATH Time Seen by Provider: 08/09/21 16:15 Source of Information: Reports: Patient, RN Notes Reviewed History Limitations: Reports: No Limitations - History of Present Illness INITIAL COMMENTS - FREE TEXT/NARRATIVE: This patient presents to the emergency department for evaluation of shortness of breath. She states that she has not been feeling like herself for the past few days and gets quite short of breath when she gets up and moves around. Because of the shortness of breath she says she then gets anxious. She notices that when she feels anxious her heart rate increases. She was seen by her primary care provider about a week ago and started on antibiotic for a cough. She has not had a fever with this. Her appetite is good, she denies vomiting or diarrhea. She denies falls or syncope. She does state that her ankles are more swollen than normal. - Related Data Allergies Allergy/AdvReac Type Severity Reaction Status Date / Time hydrochlorothiazide Allergy Unknown Rash Verified 08/09/21 17:32 Iodinated Contrast Media Allergy Unknown Rash Verified 08/09/21 17:32 Sulfa (Sulfonamide Allergy Unknown Rash Verified 08/09/21 17:32 Antibiotics) tramadol Allergy Rash Verified 08/09/21 17:32 Home Meds: Home Meds Acetaminophen [Tylenol Arthritis] 650 mg PO Q6HR PRN 02/04/19 [History] Ascorbic Acid [Vitamin C] 1,000 mg PO DAILY 02/04/19 [History] Aspirin [Aspirin EC] 325 mg PO DAILY 02/04/19 [History] Calcium Carbonate [Calcium] 500 mg PO DAILY 02/04/19 [History] Furosemide 20 mg PO DAILY 02/04/19 [History] Glucosamine Sulfate 2KCl [Glucosamine] 1,000 mg PO DAILY 02/04/19 [History] Losartan [Cozaar] 25 mg PO DAILY 02/04/19 [History] Pantoprazole Sodium [Protonix] 40 mg PO ACBREAKFAST 02/04/19 [History] Red Yeast Rice 600 mg PO DAILY 02/04/19 [History] Sennosides/Docusate Sodium [Senna-Docusate Sodium Tablet] 1 - 2 tab PO BID PRN 02/04/19 [History] oxyCODONE 5 - 10 mg PO Q4HR PRN 02/04/19 [History] polyethylene glycoL 3350 [MiraLAX] 3 tsp PO DAILY PRN 02/04/19 [History] Multivit-Min/Iron/Folic/Lutein [Centrum Silver Women Tablet] 1 each PO BEDTIME 07/01/19 [History] Past Medical History HEENT History: Reports: None Other HEENT History: readers Cardiovascular History: Reports: Heart Failure Other Cardiovascular History: Pt has had radiation from breast cancer and EF is only 30 Respiratory History: Reports: SOB Other Respiratory History: cough, shortness of breath Gastrointestinal History: Reports: Other (See Below) Other Gastrointestinal History: hiccups Other Genitourinary History: Pt had ureter nicked during surgery and was taken to the [facility] for repair. [employer] REPRESENTATIVE History: Reports: Dysfunctional Uterine Bleeding, Musculoskeletal History: Reports: Arthritis, Back Pain, Chronic, Osteoarthritis Other Musculoskeletal History: knee and hip pain, muscles weaker Neurological History: Reports: Other (See Below) Other Neuro History: MIXON from steroid injections Other Psychiatric History: claustraphobic Oncologic (Cancer) History: Reports: Breast Dermatologic History: Reports: Other (See Below) Other Dermatologic History: bumps on skin - Past Surgical History HEENT Surgical History: Reports: None Cardiovascular Surgical History: Reports: Other (See Below) Other Cardiovascular Surgeries/Procedures: bradycardia CHF GI Surgical History: Reports: Colonoscopy Other GI Surgeries/Procedures: Hysterectomy Female Surgical History: Reports: Hysterectomy Other Female Surgeries/Procedures: urethreal implant Musculoskeletal Surgical History: Reports: Hip Replacement Oncologic Surgical History: Reports: Lumpectomy Social & Family History - Family History Family Medical History: No Pertinent Family History - Caffeine Use Caffeine Use: Reports: None ED ROS ENT - Review of Systems Review Of Systems: Comprehensive ROS is negative, except as noted in HPI. ED EXAM, ENT - Physical Exam Exam: See Below Exam Limited By: No Limitations General Appearance: Alert, No Apparent Distress Eye Exam: Bilateral Eye: EOMI, Normal Inspection, PERRL Ears: Normal External Exam Nose: Normal Inspection Head: Atraumatic, Normocephalic Neck: Normal Inspection, Non-Tender, Full Range of Motion Respiratory/Chest: No Respiratory Distress, Lungs Clear, Normal Breath Sounds, No Accessory Muscle Use, Chest Non-Tender Cardiovascular: Normal Peripheral Pulses, Regular Rate, Rhythm, Other (2+ pitting edema bilateral ankles) Extremities: Normal Inspection Neurological: Alert, Oriented Psychiatric: Normal Affect Skin: Warm, Dry Course - Orders/Labs/Meds Labs: Laboratory Tests 08/09/21 Range/Units 16:12 SARS-CoV-2 RNA ([facility]) Negative (NEGATIVE) - Re-Assessments/Exams Free Text/Narrative Re-Assessment/Exam: This patient presents to the emergency room for evaluation of shortness of breath. I considered a broad differential of her dyspnea including CHF exacerbation, pulmonary emboli, hemothorax, pleural effusion, pneumonia, acute coronary syndrome, reactive airway disease, bronchitis, upper airway obstruction, foreign body. She does complain of shortness of breath mostly with exertion and increased lower extremity edema supporting a mild exacerbation of her CHF. Given her history and physical exam findings I suggested to her increasing her dose of Lasix for the next 3 days and seeing how she feels. She should be seen by her primary care provider in about a week. She should return to the ER if she gets any worse or does not feel the increase in diuretic is helping her. 08/09/21 18:11 Departure - Departure Time of Disposition: 17:06 Disposition: Home, Self-Care 01 Condition: Good Clinical Impression: Congestive heart failure Qualifiers: Qualified Code(s): I50.23 - Acute on chronic systolic (congestive) heart failure - Discharge Information Instructions: Heart Failure, Diagnosis, [id number] Referrals: PCP,None [Primary Care Provider] - Additional Instructions: Increase your Lasix to 40 mg per day for the next 3 days. Make an appointment with your regular health care provider for a recheck in 5-7 days; return to the ED sooner if you get worse in any way.
== END 2021-08-09 17:13 | disposition home or self-care (01) ==
LOC: LB.ED 13:43
DX: I50.23 Acute on chronic systolic (congestive) heart failure (principal); M19.90 Unspecified osteoarthritis, unspecified site; Z91.041 Radiographic dye allergy status; Z88.5 Allergy status to narcotic agent; Z88.8 Allergy status to other drugs, medicaments and biological substances; Z79.899 Other long term (current) drug therapy; Z79.82 Long term (current) use of aspirin
CPT/HCPCS: 87804; 99284; U0002